=== PATIENT | female | born 1985 | race Caucasian/White ===

== ENCOUNTER 2017-04-03 14:12 | Emergency (ER) | payer BC ==
[2017-04-03] MEDS: ONDANSETRON 4 MG INJ IV (16:43)
[2017-04-03] MEDS: SOD CHLORIDE 0.9% 1,000 ML IV (16:44)
[2017-04-03 16:52] LABS: ADD MAN DIFF? NO
[2017-04-03 16:55] LABS: WHITE BLOOD COUNT 8.5 10^3/ul (4.8-10.8)
[2017-04-03 16:55] LABS: BASOPHILS % 0.1 % (0.0-2.0); EOSINOPHILS % 0.1 % (0.0-7.0); HEMATOCRIT 41.4 % (37.0-47.0); HEMOGLOBIN 13.9 g/dl (12.0-16.0); LYMPHOCYTES # 0.7 10^3/ul (0.8-2.9); MEAN CORPUSCULAR HEMOGLOBIN 29.6 pg (29.0-33.0); MEAN CORPUSCULAR HGB CONC 33.6 g/dl (32.0-37.0); MEAN CORPUSCULAR VOLUME 88.3 fl (82.0-101.0); MEAN PLATELET VOLUME 11.8 fl (7.4-10.4); MONOCYTE # 0.6 10^3/ul (0.3-0.9); MONOCYTES % 6.5 % (0.0-11.0); NEUTROPHIL # 7.2 10^3/ul (1.6-7.5); NEUTROPHILS % 84.9 % (39.0-77.0); PLATELET COUNT 184 10^3/UL (140-415); RED BLOOD COUNT 4.69 10^6/ul (4.20-5.40); RED CELL DISTRIBUTION WIDTH 12.7 % (11.5-14.5)
[2017-04-03 17:02] LABS: ADD UMIC YES; UR ASCORBIC ACID 40 mg/dL (NEGATIVE); UR BACTERIA FEW /HPF (NONE SEEN); UR BILIRUBIN (Dip) NEGATIVE (NEGATIVE); UR BLOOD (Dip) NEGATIVE (NEGATIVE); UR CLARITY CLEAR (CLEAR); UR COLOR YELLOW (YELLOW); UR GLUCOSE (Dip) NEGATIVE (NEGATIVE); UR KETONES (Dip) TRACE mg/dL (NEGATIVE); UR LEUKOCYTE ESTERASE (Dip) NEGATIVE Leu/ul (NEGATIVE); UR MUCUS FEW /HPF (NONE SEEN); UR NITRITE (Dip) NEGATIVE (NEGATIVE); UR RBC 5 /HPF (0-5); UR SPECIFIC GRAVITY (Dip) 1.031 (1.003-1.030); UR SQUAMOUS EPITHELIAL CELL FEW /HPF (FEW); UR TOTAL PROTEIN (Dip) 2+ mg/dl (NEGATIVE); UR UROBILINOGEN (Dip) 1+ mg/dL (NEGATIVE); UR WBC 2 /HPF (0-5)
[2017-04-03 17:18] LABS: ALANINE AMINOTRANSFERASE 34 IU/L (13-69); ALBUMIN 4.7 g/dl (3.3-4.9); ALKALINE PHOSPHATASE 84 IU/L (42-121); ANION GAP 17 (8-16); ASPARTATE AMINO TRANSFERASE 32 IU/L (15-46); BILIRUBIN,INDIRECT 0.1 mg/dl (0-1.1); BILIRUBIN,TOTAL 0.1 mg/dl (0.2-1.3); BLOOD UREA NITROGEN 12 mg/dl (7-20); CARBON DIOXIDE 24 mmol/L (21-31); CHLORIDE 99 mmol/L (97-110); CREATININE 1.06 mg/dl (0.44-1.00); GLUCOSE 103 mg/dl (70-220); POTASSIUM 3.3 mmol/L (3.5-5.1); SODIUM 137 mmol/L (135-144); TOTAL PROTEIN 8.3 g/dl (6.1-8.1)
== END 2017-04-03 19:01 | disposition home or self-care (01) ==
LOC: FTE 14:12
DX: O21.9 Vomiting of pregnancy, unspecified (principal); R50.9 Fever, unspecified; O99.89 Other specified diseases and conditions complicating pregnancy, childbirth and the puerperium; R10.2 Pelvic and perineal pain; Z3A.12 12 weeks gestation of pregnancy
CPT/HCPCS: 36415; 76801; 80053; 81001; 84702; 85025; 86900; 86901; 87400; 96374; 99285-25

== ENCOUNTER 2017-04-09 13:06 | Emergency (ER) | payer SELFPAY, BC | END 2017-04-09 15:00 | disposition left against medical advice (07) | LOC: E/R 13:06 | DX: Z53.21 Procedure and treatment not carried out due to patient leaving prior to being seen by health care provider (principal) ==

== ENCOUNTER 2017-05-25 07:50 | Emergency (ER) | payer OTHER ==
[2017-05-25] MEDS: ACETAMINOPHEN 500 MG TAB PO (09:02)
[2017-05-25 10:00] LABS: ADD UMIC YES; UR ASCORBIC ACID NEGATIVE (NEGATIVE); UR BACTERIA FEW /HPF (NONE SEEN); UR BILIRUBIN (Dip) NEGATIVE (NEGATIVE); UR BLOOD (Dip) NEGATIVE (NEGATIVE); UR CLARITY SLIGHTLY CLOUDY (CLEAR); UR COLOR YELLOW (YELLOW); UR GLUCOSE (Dip) NEGATIVE (NEGATIVE); UR KETONES (Dip) NEGATIVE (NEGATIVE); UR LEUKOCYTE ESTERASE (Dip) NEGATIVE Leu/ul (NEGATIVE); UR NITRITE (Dip) NEGATIVE (NEGATIVE); UR RBC 2 /HPF (0-5); UR SPECIFIC GRAVITY (Dip) 1.021 (1.003-1.030); UR SQUAMOUS EPITHELIAL CELL MODERATE /HPF (FEW); UR TOTAL PROTEIN (Dip) 2+ mg/dl (NEGATIVE); UR UROBILINOGEN (Dip) 2+ mg/dL (NEGATIVE); UR WBC 0 /HPF (0-5)
[2017-05-25 10:08] LABS: ADD MAN DIFF? NO
[2017-05-25 10:10] LABS: WHITE BLOOD COUNT 10.2 10^3/ul (4.8-10.8)
[2017-05-25 10:10] LABS: BASOPHILS % 0.1 % (0.0-2.0); EOSINOPHILS # 0.1 10^3/ul (0.0-0.5); EOSINOPHILS % 1.3 % (0.0-7.0); HEMATOCRIT 35.4 % (37.0-47.0); HEMOGLOBIN 11.9 g/dl (12.0-16.0); LYMPHOCYTES # 1.7 10^3/ul (0.8-2.9); LYMPHOCYTES % 16.2 % (15.0-51.0); MEAN CORPUSCULAR HEMOGLOBIN 29.8 pg (29.0-33.0); MEAN CORPUSCULAR HGB CONC 33.6 g/dl (32.0-37.0); MEAN CORPUSCULAR VOLUME 88.7 fl (82.0-101.0); MEAN PLATELET VOLUME 11.6 fl (7.4-10.4); MONOCYTE # 0.5 10^3/ul (0.3-0.9); MONOCYTES % 4.7 % (0.0-11.0); NEUTROPHIL # 7.9 10^3/ul (1.6-7.5); NEUTROPHILS % 77.2 % (39.0-77.0); PLATELET COUNT 218 10^3/UL (140-415); RED BLOOD COUNT 3.99 10^6/ul (4.20-5.40); RED CELL DISTRIBUTION WIDTH 13.2 % (11.5-14.5)
[2017-05-25 10:27] LABS: ALANINE AMINOTRANSFERASE 40 IU/L (13-69); ALBUMIN 3.8 g/dl (3.3-4.9); ALBUMIN/GLOBULIN RATIO 1.22; ALKALINE PHOSPHATASE 100 IU/L (42-121); ANION GAP 12 (8-16); ASPARTATE AMINO TRANSFERASE 73 IU/L (15-46); BILIRUBIN,INDIRECT 0.1 mg/dl (0-1.1); BILIRUBIN,TOTAL 0.1 mg/dl (0.2-1.3); BLOOD UREA NITROGEN 14 mg/dl (7-20); CALCIUM 9.3 mg/dl (8.4-10.2); CARBON DIOXIDE 25 mmol/L (21-31); CHLORIDE 106 mmol/L (97-110); GLUCOSE 91 mg/dl (70-220); LIPASE 227 U/L (23-300); POTASSIUM 3.7 mmol/L (3.5-5.1); SODIUM 139 mmol/L (135-144); TOTAL PROTEIN 6.9 g/dl (6.1-8.1)
== END 2017-05-25 11:25 | disposition home or self-care (01) ==
LOC: FTE 07:50
DX: O99.612 Diseases of the digestive system complicating pregnancy, second trimester (principal); K80.20 Calculus of gallbladder without cholecystitis without obstruction; Z3A.19 19 weeks gestation of pregnancy
CPT/HCPCS: 36415; 76705; 76805; 80053; 81001; 83690; 85025; 86900; 86901; 99285-25

== ENCOUNTER 2017-06-07 20:31 | Inpatient (IN) | payer OTHER ==
[2017-06-07] MEDS: SOD CHLORIDE 0.9% 1,000 ML IV (21:30)
[2017-06-07] MEDS: METOCLOPRAMIDE 10 MG INJ IV (21:40)
[2017-06-07 22:18] LABS: ADD MAN DIFF? NO
[2017-06-07] MEDS: HYDROCODONE/APAP (5/325) TAB PO (22:19)
[2017-06-07] MEDS: FAMOTIDINE 20 MG INJ IV (22:19)
[2017-06-07 22:20] LABS: WHITE BLOOD COUNT 11.8 10^3/ul (4.8-10.8)
[2017-06-07 22:20] LABS: BASOPHILS % 0.2 % (0.0-2.0); EOSINOPHILS # 0.1 10^3/ul (0.0-0.5); EOSINOPHILS % 1.1 % (0.0-7.0); HEMOGLOBIN 11.2 g/dl (12.0-16.0); LYMPHOCYTES # 2.3 10^3/ul (0.8-2.9); LYMPHOCYTES % 19.6 % (15.0-51.0); MEAN CORPUSCULAR HEMOGLOBIN 29.9 pg (29.0-33.0); MEAN CORPUSCULAR HGB CONC 32.9 g/dl (32.0-37.0); MEAN CORPUSCULAR VOLUME 90.9 fl (82.0-101.0); MEAN PLATELET VOLUME 11.3 fl (7.4-10.4); MONOCYTE # 0.8 10^3/ul (0.3-0.9); MONOCYTES % 7.1 % (0.0-11.0); NEUTROPHIL # 8.4 10^3/ul (1.6-7.5); NEUTROPHILS % 71.2 % (39.0-77.0); PLATELET COUNT 231 10^3/UL (140-415); RED BLOOD COUNT 3.74 10^6/ul (4.20-5.40); RED CELL DISTRIBUTION WIDTH 13.2 % (11.5-14.5)
[2017-06-07] MEDS: LACTATED RINGER'S 1,000 ML IV (22:29)
[2017-06-07 22:39] LABS: ALANINE AMINOTRANSFERASE 58 IU/L (13-69); ALBUMIN 3.8 g/dl (3.3-4.9); ALBUMIN/GLOBULIN RATIO 1.11; ALKALINE PHOSPHATASE 129 IU/L (42-121); ANION GAP 14 (8-16); ASPARTATE AMINO TRANSFERASE 122 IU/L (15-46); BLOOD UREA NITROGEN 16 mg/dl (7-20); CALCIUM 9.7 mg/dl (8.4-10.2); CARBON DIOXIDE 25 mmol/L (21-31); CHLORIDE 104 mmol/L (97-110); CREATININE 1.01 mg/dl (0.44-1.00); GLUCOSE 94 mg/dl (70-220); LIPASE 311 U/L (23-300); SODIUM 139 mmol/L (135-144); TOTAL PROTEIN 7.2 g/dl (6.1-8.1)
[2017-06-08 00:58] LABS: ADD UMIC YES; UR ASCORBIC ACID NEGATIVE (NEGATIVE); UR BACTERIA FEW /HPF (NONE SEEN); UR BILIRUBIN (Dip) NEGATIVE (NEGATIVE); UR BLOOD (Dip) NEGATIVE (NEGATIVE); UR CLARITY SLIGHTLY CLOUDY (CLEAR); UR COLOR YELLOW (YELLOW); UR GLUCOSE (Dip) NEGATIVE (NEGATIVE); UR KETONES (Dip) NEGATIVE (NEGATIVE); UR LEUKOCYTE ESTERASE (Dip) TRACE Leu/ul (NEGATIVE); UR NITRITE (Dip) NEGATIVE (NEGATIVE); UR RBC 1 /HPF (0-5); UR SPECIFIC GRAVITY (Dip) 1.005 (1.003-1.030); UR SQUAMOUS EPITHELIAL CELL FEW /HPF (FEW); UR TOTAL PROTEIN (Dip) NEGATIVE (NEGATIVE); UR UROBILINOGEN (Dip) NEGATIVE (NEGATIVE); UR WBC 1 /HPF (0-5)
[2017-06-08] MEDS: LACTATED RINGER S IV (00:58)
[2017-06-08] MEDS: ONDANSETRON 4 MG INJ IV ×3 (01:00→12:29)
[2017-06-08] MEDS: HYDROCODONE/APAP (5/325) TAB PO (01:01)
[2017-06-08] MEDS: CEFTRIAXONE 1 GM/50 ML (PMX) 50 ML IVPB ×2 (03:32→09:35)
[2017-06-08] MEDS ORDERED: ACETAMINOPHEN 325 MG TAB PO ×2 (04:00→09:30)
[2017-06-08] MEDS: morphine 4 MG/ML VIAL IV (06:23)
[2017-06-08] MEDS ORDERED: BISACODYL 10 MG SUPP PR (09:30)
[2017-06-08] MEDS ORDERED: DOCUSATE SODIUM 100 MG CAP PO (09:30)
[2017-06-08] MEDS ORDERED: NACL 0.9% 3 ML SYG IV (09:30)
[2017-06-08] MEDS: DEXTROSE 5%-0.9% NACL 1,000 ML IV ×3 (09:35→20:34)
[2017-06-08 11:39] LABS: ADD MAN DIFF? NO
[2017-06-08 11:42] LABS: WHITE BLOOD COUNT 8.2 10^3/ul (4.8-10.8)
[2017-06-08 11:42] LABS: BASOPHILS % 0.2 % (0.0-2.0); EOSINOPHILS # 0.1 10^3/ul (0.0-0.5); EOSINOPHILS % 1.1 % (0.0-7.0); HEMATOCRIT 32.9 % (37.0-47.0); HEMOGLOBIN 10.7 g/dl (12.0-16.0); LYMPHOCYTES # 1.4 10^3/ul (0.8-2.9); LYMPHOCYTES % 16.9 % (15.0-51.0); MEAN CORPUSCULAR HEMOGLOBIN 29.8 pg (29.0-33.0); MEAN CORPUSCULAR HGB CONC 32.5 g/dl (32.0-37.0); MEAN CORPUSCULAR VOLUME 91.6 fl (82.0-101.0); MEAN PLATELET VOLUME 11.4 fl (7.4-10.4); MONOCYTE # 0.5 10^3/ul (0.3-0.9); MONOCYTES % 5.5 % (0.0-11.0); NEUTROPHIL # 6.2 10^3/ul (1.6-7.5); NEUTROPHILS % 75.8 % (39.0-77.0); PLATELET COUNT 192 10^3/UL (140-415); RED BLOOD COUNT 3.59 10^6/ul (4.20-5.40); RED CELL DISTRIBUTION WIDTH 13.3 % (11.5-14.5)
[2017-06-08 12:02] LABS: ALANINE AMINOTRANSFERASE 133 IU/L (13-69); ALBUMIN 3.2 g/dl (3.3-4.9); ALBUMIN/GLOBULIN RATIO 1.03; ALKALINE PHOSPHATASE 149 IU/L (42-121); AMYLASE 176 U/L (11-123); ANION GAP 14 (8-16); ASPARTATE AMINO TRANSFERASE 227 IU/L (15-46); BLOOD UREA NITROGEN 10 mg/dl (7-20); CALCIUM 8.7 mg/dl (8.4-10.2); CARBON DIOXIDE 23 mmol/L (21-31); CHLORIDE 109 mmol/L (97-110); CREATININE 0.89 mg/dl (0.44-1.00); GLUCOSE 86 mg/dl (70-220); LIPASE 180 U/L (23-300); MAGNESIUM 1.3 mg/dl (1.7-2.5); PHOSPHORUS 3.2 mg/dl (2.5-4.9); POTASSIUM 3.8 mmol/L (3.5-5.1); SODIUM 142 mmol/L (135-144); TOTAL PROTEIN 6.3 g/dl (6.1-8.1)
[2017-06-08] MEDS: metroNIDAZOLE 500 MG/NS (PMX) 100 ML IVPB ×2 (14:26→22:01)
[2017-06-08] MEDS: morphine 2 MG INJ IV (14:35)
[2017-06-08] MEDS: FAMOTIDINE 20 MG INJ IV (20:34)
[2017-06-09 05:30] LABS: ADD MAN DIFF? NO
[2017-06-09] MEDS: metroNIDAZOLE 500 MG/NS (PMX) 100 ML IVPB ×3 (05:30→22:51)
[2017-06-09] MEDS: ONDANSETRON 4 MG INJ IV ×3 (05:30→21:16)
[2017-06-09 05:35] LABS: WHITE BLOOD COUNT 7.2 10^3/ul (4.8-10.8)
[2017-06-09 05:35] LABS: BASOPHILS % 0.1 % (0.0-2.0); EOSINOPHILS # 0.1 10^3/ul (0.0-0.5); EOSINOPHILS % 1.7 % (0.0-7.0); HEMATOCRIT 29.7 % (37.0-47.0); HEMOGLOBIN 9.7 g/dl (12.0-16.0); LYMPHOCYTES # 2.2 10^3/ul (0.8-2.9); LYMPHOCYTES % 29.7 % (15.0-51.0); MEAN CORPUSCULAR HEMOGLOBIN 29.8 pg (29.0-33.0); MEAN CORPUSCULAR HGB CONC 32.7 g/dl (32.0-37.0); MEAN CORPUSCULAR VOLUME 91.1 fl (82.0-101.0); MEAN PLATELET VOLUME 11.6 fl (7.4-10.4); MONOCYTE # 0.5 10^3/ul (0.3-0.9); MONOCYTES % 6.2 % (0.0-11.0); NEUTROPHIL # 4.5 10^3/ul (1.6-7.5); NEUTROPHILS % 61.7 % (39.0-77.0); PLATELET COUNT 193 10^3/UL (140-415); RED BLOOD COUNT 3.26 10^6/ul (4.20-5.40); RED CELL DISTRIBUTION WIDTH 13.5 % (11.5-14.5)
[2017-06-09 06:04] LABS: ALANINE AMINOTRANSFERASE 102 IU/L (13-69); ALBUMIN 2.8 g/dl (3.3-4.9); ALKALINE PHOSPHATASE 115 IU/L (42-121); ANION GAP 12 (8-16); ASPARTATE AMINO TRANSFERASE 124 IU/L (15-46); BLOOD UREA NITROGEN 8 mg/dl (7-20); CALCIUM 8.4 mg/dl (8.4-10.2); CARBON DIOXIDE 23 mmol/L (21-31); CHLORIDE 111 mmol/L (97-110); CREATININE 0.89 mg/dl (0.44-1.00); GLUCOSE 70 mg/dl (70-220); MAGNESIUM 1.4 mg/dl (1.7-2.5); PHOSPHORUS 3.2 mg/dl (2.5-4.9); POTASSIUM 3.7 mmol/L (3.5-5.1); SODIUM 142 mmol/L (135-144); TOTAL PROTEIN 5.9 g/dl (6.1-8.1)
[2017-06-09 06:33] LABS: HEPATITIS B SURFACE ANTIGEN NEGATIVE (NEGATIVE)
[2017-06-09 06:51] LABS: HEPATITIS B CORE ANTIBODY NEGATIVE (NEGATIVE); HEPATITIS C VIRAL ANTIBODY NEGATIVE (NEGATIVE)
[2017-06-09 06:51] LABS: HEPATITIS B SURFACE ANTIBODY NEGATIVE (NEGATIVE)
[2017-06-09] MEDS: DEXTROSE 5%-0.9% NACL 1,000 ML IV ×2 (08:00→17:47)
[2017-06-09] MEDS: FAMOTIDINE 20 MG INJ IV ×2 (08:01→21:08)
[2017-06-09] MEDS: CEFTRIAXONE 1 GM/50 ML (PMX) 50 ML IVPB (08:01)
[2017-06-09] MEDS: morphine 2 MG INJ IV (13:04)
[2017-06-09] MEDS ORDERED: HYDROCODONE/APAP (5/325) TAB PO (14:30)
[2017-06-10] MEDS: DEXTROSE 5%-0.9% NACL 1,000 ML IV ×2 (03:19→14:34)
[2017-06-10] MEDS: metroNIDAZOLE 500 MG/NS (PMX) 100 ML IVPB ×2 (05:33→14:34)
[2017-06-10 06:21] LABS: ADD MAN DIFF? NO
[2017-06-10 06:27] LABS: WHITE BLOOD COUNT 7.8 10^3/ul (4.8-10.8)
[2017-06-10 06:27] LABS: BASOPHILS % 0.3 % (0.0-2.0); EOSINOPHILS # 0.1 10^3/ul (0.0-0.5); EOSINOPHILS % 1.8 % (0.0-7.0); HEMATOCRIT 27.5 % (37.0-47.0); HEMOGLOBIN 8.9 g/dl (12.0-16.0); LYMPHOCYTES # 2.3 10^3/ul (0.8-2.9); MEAN CORPUSCULAR HEMOGLOBIN 30.1 pg (29.0-33.0); MEAN CORPUSCULAR HGB CONC 32.4 g/dl (32.0-37.0); MEAN CORPUSCULAR VOLUME 92.9 fl (82.0-101.0); MEAN PLATELET VOLUME 11.1 fl (7.4-10.4); MONOCYTE # 0.5 10^3/ul (0.3-0.9); NEUTROPHIL # 4.8 10^3/ul (1.6-7.5); NEUTROPHILS % 61.5 % (39.0-77.0); PLATELET COUNT 188 10^3/UL (140-415); RED BLOOD COUNT 2.96 10^6/ul (4.20-5.40); RED CELL DISTRIBUTION WIDTH 13.3 % (11.5-14.5)
[2017-06-10 06:57] LABS: ALANINE AMINOTRANSFERASE 63 IU/L (13-69); ALANINE AMINOTRANSFERASE 71 IU/L (13-69); ALBUMIN 2.4 g/dl (3.3-4.9); ALBUMIN 2.6 g/dl (3.3-4.9); ALBUMIN/GLOBULIN RATIO 0.92; ALKALINE PHOSPHATASE 82 IU/L (42-121); ALKALINE PHOSPHATASE 87 IU/L (42-121); ANION GAP 10 (8-16); ASPARTATE AMINO TRANSFERASE 53 IU/L (15-46); ASPARTATE AMINO TRANSFERASE 55 IU/L (15-46); BLOOD UREA NITROGEN 8 mg/dl (7-20); CALCIUM 7.9 mg/dl (8.4-10.2); CARBON DIOXIDE 22 mmol/L (21-31); CHLORIDE 113 mmol/L (97-110); CREATININE 0.86 mg/dl (0.44-1.00); GLUCOSE 69 mg/dl (70-220); POTASSIUM 3.7 mmol/L (3.5-5.1); SODIUM 141 mmol/L (135-144); TOTAL PROTEIN 5.2 g/dl (6.1-8.1)
[2017-06-10] MEDS: CEFTRIAXONE 1 GM/50 ML (PMX) 50 ML IVPB (09:53)
[2017-06-10] MEDS: FAMOTIDINE 20 MG INJ IV (09:54)
[2017-06-10 10:17] LABS: PHOSPHORUS 3.1 mg/dl (2.5-4.9)
[2017-06-10 10:17] LABS: MAGNESIUM 1.3 mg/dl (1.7-2.5)
[2017-06-10] MEDS: PRENATAL VITAMIN PO (12:00)
== END 2017-06-10 18:08 | disposition home or self-care (01) | DRG 781 ==
LOC: FTE 20:31 → PP2 06-08 03:51
DX: O99.612 Diseases of the digestive system complicating pregnancy, second trimester (principal); K80.20 Calculus of gallbladder without cholecystitis without obstruction; Z3A.20 20 weeks gestation of pregnancy
CPT/HCPCS: 74181; 76705; 76805; 80053; 80076; 81001; 82150; 83690; 83735; 84100; 85025; 86704; 86706; 86709; 86803; 87340; 96361; 96365; 96375; 96376; 99285-25

== ENCOUNTER 2017-07-24 12:32 | Inpatient (IN) | payer OTHER ==
[2017-07-24 14:02] LABS: ADD MAN DIFF? NO
[2017-07-24 14:08] LABS: WHITE BLOOD COUNT 9.4 10^3/ul (4.8-10.8)
[2017-07-24 14:08] LABS: BASOPHILS % 0.2 % (0.0-2.0); EOSINOPHILS # 0.1 10^3/ul (0.0-0.5); EOSINOPHILS % 1.3 % (0.0-7.0); HEMATOCRIT 31.5 % (37.0-47.0); HEMOGLOBIN 10.5 g/dl (12.0-16.0); LYMPHOCYTES % 20.7 % (15.0-51.0); MEAN CORPUSCULAR HEMOGLOBIN 29.7 pg (29.0-33.0); MEAN CORPUSCULAR HGB CONC 33.3 g/dl (32.0-37.0); MEAN CORPUSCULAR VOLUME 89.2 fl (82.0-101.0); MEAN PLATELET VOLUME 11.2 fl (7.4-10.4); MONOCYTE # 0.6 10^3/ul (0.3-0.9); MONOCYTES % 5.8 % (0.0-11.0); NEUTROPHIL # 6.7 10^3/ul (1.6-7.5); NEUTROPHILS % 71.6 % (39.0-77.0); PLATELET COUNT 216 10^3/UL (140-415); RED BLOOD COUNT 3.53 10^6/ul (4.20-5.40); RED CELL DISTRIBUTION WIDTH 12.7 % (11.5-14.5)
[2017-07-24 14:30] LABS: ADD UMIC YES; UR ASCORBIC ACID NEGATIVE (NEGATIVE); UR BACTERIA FEW /HPF (NONE SEEN); UR BILIRUBIN (Dip) NEGATIVE (NEGATIVE); UR BLOOD (Dip) NEGATIVE (NEGATIVE); UR CLARITY CLEAR (CLEAR); UR COLOR YELLOW (YELLOW); UR GLUCOSE (Dip) NEGATIVE (NEGATIVE); UR KETONES (Dip) NEGATIVE (NEGATIVE); UR LEUKOCYTE ESTERASE (Dip) NEGATIVE Leu/ul (NEGATIVE); UR NITRITE (Dip) NEGATIVE (NEGATIVE); UR RBC 0 /HPF (0-5); UR SPECIFIC GRAVITY (Dip) 1.015 (1.003-1.030); UR TOTAL PROTEIN (Dip) 1+ mg/dl (NEGATIVE); UR UROBILINOGEN (Dip) NEGATIVE (NEGATIVE); UR WBC 1 /HPF (0-5)
[2017-07-24] MEDS: DEXTROSE 5%-LR 1,000 ML IV (16:53)
[2017-07-24] MEDS ORDERED: MAGNESIUM CITRATE 300 ML BTL PO (21:30)
[2017-07-24] MEDS: MAGNESIUM CITRATE 300 ML BTL PO (22:09)
[2017-07-25] MEDS: LACTATED RINGER'S 1,000 ML IV (00:05)
[2017-07-25] MEDS: MAGNESIUM HYDROXIDE 30ML CUP PO (06:03)
[2017-07-25] MEDS: DOCUSATE SODIUM 100 MG CAP PO (06:03)
== END 2017-07-25 16:13 | disposition home or self-care (01) | DRG 781 ==
LOC: OBT 12:32 → L-D 12:34 → OBT 15:15 → L-D 15:15
PROVIDERS: Specialist
DX: O26.892 Other specified pregnancy related conditions, second trimester (principal); R10.31 Right lower quadrant pain; O99.612 Diseases of the digestive system complicating pregnancy, second trimester; K37 Unspecified appendicitis; Z3A.27 27 weeks gestation of pregnancy
CPT/HCPCS: 74182; 76705; 76817; 76818; 81001; 82731; 85025

== ENCOUNTER 2017-09-28 07:52 | Outpatient (CLI) | payer OTHER | END 2017-09-28 09:30 | disposition home or self-care (01) | LOC: OBT 07:52 → L-D 07:53 → OBT 09:30 | DX: O36.8130 Decreased fetal movements, third trimester, not applicable or unspecified (principal); Z3A.36 36 weeks gestation of pregnancy | CPT/HCPCS: 76815; 76818 ==

== ENCOUNTER 2017-10-14 11:55 | Inpatient (IN) | payer OTHER ==
[2017-10-14 12:57] LABS: RUPTURE FETAL MEMBRANES NEGATIVE (NEGATIVE)
[2017-10-14] MEDS ORDERED: LIDOCAINE 1% (MPF) 30 ML INJ INJ (14:00)
[2017-10-14] MEDS ORDERED: IBUPROFEN 600 MG TAB PO (14:00)
[2017-10-14] MEDS ORDERED: OXYTOCIN 30 UNITS/LR 500 ML IV ×2 (14:00)
[2017-10-14] MEDS ORDERED: METHYLERGONOVINE 0.2 MG INJ IM (14:00)
[2017-10-14] MEDS ORDERED: CARBOPROST 250 MCG INJ IM (14:00)
[2017-10-14] MEDS ORDERED: MISOPROSTOL 200 MCG TAB PR (14:00)
[2017-10-14] MEDS ORDERED: BUTORPHANOL 2 MG INJ IV (14:00)
[2017-10-14] MEDS: LACTATED RINGER'S 1,000 ML IV* (15:05)
[2017-10-14 15:21] LABS: ADD MAN DIFF? NO
[2017-10-14 15:24] LABS: BASOPHILS % 0.2 % (0.0-2.0); EOSINOPHILS # 0.1 10^3/ul (0.0-0.5); EOSINOPHILS % 0.6 % (0.0-7.0); HEMATOCRIT 33.3 % (37.0-47.0); HEMOGLOBIN 10.9 g/dl (12.0-16.0); LYMPHOCYTES % 18.2 % (15.0-51.0); MEAN CORPUSCULAR HGB CONC 32.7 g/dl (32.0-37.0); MEAN CORPUSCULAR VOLUME 88.6 fl (82.0-101.0); MONOCYTE # 0.6 10^3/ul (0.3-0.9); MONOCYTES % 5.7 % (0.0-11.0); NEUTROPHIL # 8.2 10^3/ul (1.6-7.5); NEUTROPHILS % 74.9 % (39.0-77.0); PLATELET COUNT 230 10^3/UL (140-415); RED BLOOD COUNT 3.76 10^6/ul (4.20-5.40); RED CELL DISTRIBUTION WIDTH 14.1 % (11.5-14.5)
[2017-10-14 15:43] LABS: INR 0.93; PROTIME 12.5 Sec (11.9-14.9)
[2017-10-14 15:44] LABS: PARTIAL THROMBOPLASTIN TIME 25.9 Sec (25.0-35.0)
[2017-10-14] MEDS: AMPICILLIN 2 GM/NS (PMX) 100 ML IV (15:46)
[2017-10-14] MEDS: MISOPROSTOL 25 MCG CAPSULE PO (16:03)
[2017-10-14 16:22] LABS: HEPATITIS B SURFACE ANTIGEN NEGATIVE (NEGATIVE)
[2017-10-14] MEDS: LACTATED RINGER'S 1,000 ML IV (16:49)
[2017-10-14] MEDS ORDERED: NALOXONE (0.4 MG/ML) INJ IV (17:00)
[2017-10-14] MEDS ORDERED: DIPHENHYDRAMINE 50 MG INJ IV (17:00)
[2017-10-14] MEDS ORDERED: FENTAnyl 2MCG/ML-ROPIV 0.2% 100 ML (17:07)
[2017-10-14 17:19] LABS: AMPHETAMINE/METHAMPHETAMINE NEGATIVE (NEGATIVE); BARBITURATES NEGATIVE (NEGATIVE); BENZODIAZEPINES NEGATIVE (NEGATIVE); CANNABINOIDS NEGATIVE (NEGATIVE); COCAINE NEGATIVE (NEGATIVE); OPIATES NEGATIVE (NEGATIVE)
[2017-10-14] MEDS ORDERED: AMPICILLIN 1 GM/NS (PMX) 50 ML IV (17:30)
[2017-10-14] MEDS: ONDANSETRON 4 MG INJ IV (18:10)
[2017-10-14] MEDS: FENTAnyl 2MCG/ML-ROPIV 0.2% 100 ML BAG EPI (18:11)
[2017-10-14] MEDS: AMPICILLIN 1 GM/NS (PMX) 50 ML IV ×2 (19:15→22:49)
[2017-10-14] MEDS: OXYTOCIN 30 UNITS/LR 500 ML IV ×2 (21:59→23:42)
[2017-10-15] MEDS ORDERED: ZOLPIDEM 5 MG TAB PO
[2017-10-15] MEDS ORDERED: WITCH HAZEL/GLYCERIN PAD PR
[2017-10-15] MEDS ORDERED: MISOPROSTOL 200 MCG TAB PR
[2017-10-15] MEDS ORDERED: CARBOPROST 250 MCG INJ IM
[2017-10-15] MEDS ORDERED: DIBUCAINE 1% 30 GM OINT PR
[2017-10-15] MEDS ORDERED: LANOLIN 7 GM TUBE TOP
[2017-10-15] MEDS ORDERED: ACETAMINOPHEN 325 MG TAB PO
[2017-10-15] MEDS ORDERED: ONDANSETRON 4 MG INJ IV
[2017-10-15] MEDS ORDERED: BENZOCAINE 20% 56 ML SPRAY TOP
[2017-10-15] MEDS ORDERED: OXYTOCIN 30 UNITS/LR 500 ML IV
[2017-10-15] MEDS ORDERED: METHYLERGONOVINE 0.2 MG INJ IM
[2017-10-15] MEDS ORDERED: DIPHENHYDRAMINE 50 MG INJ IV
[2017-10-15] MEDS: IBUPROFEN 600 MG TAB PO ×4 (01:20→18:15)
[2017-10-15] MEDS: LACTATED RINGER'S 1,000 ML IV* ×4 (01:20→23:58)
[2017-10-15] MEDS: DEXTROSE 5%-LR 1,000 ML IV ×4 (01:20→23:58)
[2017-10-15 10:43] LABS: ADD MAN DIFF? NO
[2017-10-15 10:49] LABS: WHITE BLOOD COUNT 13.2 10^3/ul (4.8-10.8)
[2017-10-15 10:49] LABS: BASOPHILS % 0.2 % (0.0-2.0); EOSINOPHILS # 0.1 10^3/ul (0.0-0.5); EOSINOPHILS % 0.5 % (0.0-7.0); HEMATOCRIT 29.5 % (37.0-47.0); HEMOGLOBIN 9.6 g/dl (12.0-16.0); LYMPHOCYTES # 1.9 10^3/ul (0.8-2.9); LYMPHOCYTES % 14.2 % (15.0-51.0); MEAN CORPUSCULAR HEMOGLOBIN 28.9 pg (29.0-33.0); MEAN CORPUSCULAR HGB CONC 32.5 g/dl (32.0-37.0); MEAN CORPUSCULAR VOLUME 88.9 fl (82.0-101.0); MEAN PLATELET VOLUME 11.9 fl (7.4-10.4); MONOCYTE # 0.8 10^3/ul (0.3-0.9); MONOCYTES % 6.4 % (0.0-11.0); NEUTROPHIL # 10.4 10^3/ul (1.6-7.5); NEUTROPHILS % 78.2 % (39.0-77.0); PLATELET COUNT 186 10^3/UL (140-415); RED BLOOD COUNT 3.32 10^6/ul (4.20-5.40); RED CELL DISTRIBUTION WIDTH 14.4 % (11.5-14.5)
[2017-10-15] MEDS: HYDROCODONE/APAP (5/325) TAB PO (13:14)
[2017-10-15 15:06] LABS: RAPID PLASMA REAGIN NONREACTIVE (NR)
[2017-10-15] MEDS: SENNA/DOCUSATE NA (8.6MG/50MG) TAB PO (21:17)
[2017-10-16] MEDS: HYDROCODONE/APAP (5/325) TAB PO (01:20)
[2017-10-16] MEDS: IBUPROFEN 600 MG TAB PO ×4 (05:38→17:58)
[2017-10-16] MEDS: LACTATED RINGER'S 1,000 ML IV* ×2 (07:58→15:58)
[2017-10-16] MEDS: DEXTROSE 5%-LR 1,000 ML IV ×2 (07:58→15:58)
[2017-10-16] MEDS: MEASLES,MUMPS,RUBELLA VACCINE INJ SC* (09:00)
[2017-10-16] MEDS: DIPHTH/TET/ACEL PERTUSS (ADULT) 0.5 ML VIAL IM* (09:00)
== END 2017-10-16 23:40 | disposition home or self-care (01) | DRG 775 ==
LOC: OBT 11:55 → PP1 10-15 01:29 → L-D 11:55 → OBT 13:20 → L-D 13:20
PROC: 10E0XZZ Delivery of Products of Conception, External Approach (ICD-10-PCS; principal; 2017-10-15)
DX: O80 Encounter for full-term uncomplicated delivery (principal); Z3A.39 39 weeks gestation of pregnancy; Z37.0 Single live birth
CPT/HCPCS: 62319; 76815; 76818; 80307; 84112; 85025; 85610; 85730; 86592; 86900; 86901; 87340

== ENCOUNTER 2018-09-09 23:37 | Emergency (ER) | payer SELFPAY, OTHER | END 2018-09-10 01:10 | disposition left against medical advice (07) | LOC: FTE 23:37 | DX: Z53.21 Procedure and treatment not carried out due to patient leaving prior to being seen by health care provider (principal) ==